=== PATIENT | female | born 1960 | race Caucasian/White ===

== ENCOUNTER 2024-09-17 13:26 | Emergency (ER) | payer OTHER, SELFPAY ==
[2024-09-17 13:28] VITALS: BP 138/75; PULSE 88; RESP 14; TEMP 36.3; O2SAT 96
--- NOTE | 2024-09-17 13:54 | ED.VIS.FEGU ---
HPI <VITALY Lepe - Last Filed: 09/17/24 15:12> HPI - Female History of Present Illness Chief Complaint: Vag Bleeding Narrative Narrative: Patient presenting due to abnormal vaginal bleeding that started earlier today. She coughed and felt blood coming out of her vagina, she then had to place a pad on and has had bleeding since. She denies any history of similar symptoms. She started HRT in February due to hot flashes from menopause. She follows with a engineer technical staff through the [facility]. She reports lower pelvic cramping that radiates to her back. She denies any fevers, chills, or urinary symptoms. PFSH <VITALY Lepe - Last Filed: 09/17/24 15:12> PFSH Allergy/AdvReac Type Severity Reaction Status Date / Time No Known Allergies Allergy Verified 09/17/24 13:32 Social History Smoking Status: Never smoker ROS <VITALY Lepe - Last Filed: 09/17/24 15:12> ROS ED Constitutional Constitutional ED: Denies chills or fever(s) Cardiovascular Cardiovascular: Denies chest pain Respiratory/Chest Respiratory/Chest: Denies dyspnea Gastrointestinal Gastrointestinal: Denies abdominal pain, nausea or vomiting Genitourinary Genitourinary ED: Reports other Details: Pelvic cramping, vaginal bleeding ; Denies dysuria, hematuria or urinary urgency Musculoskeletal Musculoskeletal: Reports other Details: Back pain Integumentary Denies rash Neurologic Neurologic: Denies weakness EXAM <VITALY Lepe - Last Filed: 09/17/24 15:12> Physical Exam Const Vital Signs: 09/17/24 13:28 09/17/24 15:00 Temperature 97.3 F L Temperature Source Temporal Pulse Rate 88 87 Respiratory Rate 14 18 Blood Pressure 138/75 H Blood Pressure Mean 96 Pulse Ox 96 100 Oxygen Delivery Method Room Air Positive well nourished, well developed and no apparent distress General Appearance ED: well developed HEENT Reports normocephalic and head/scalp atraumatic Mouth ED: Yes moist mucous membranes normal Eyes PERRL and EOMs intact bilaterally Neck full ROM and supple Chest Wall inspection of chest normal Resp normal respiratory effort and clear to auscultation bilaterally Cardio regular rate and regular rhythm GI soft to palpation, non-distended and no masses GI Narrative: Minimal pelvic tenderness to palpation Narrative: Pelvic exam performed with attending physician, moderate blood in the vaginal canal, cervix visualized with no hemorrhaging Back/Spine normal ROM and normal to inspection Extremity normal to inspection and full ROM Neuro oriented x3, CN's II-XII intact bilaterally, moves all extremities, no focal motor deficits and no sensory deficits noted Sensorium / Orientation: awake and alert Psych mental status grossly normal and thought process normal Skin no rashes or lesions noted and no wounds <Dr. Pipo Schumacher MD - Last Filed: 09/17/24 15:17> Physical Exam Const Vital Signs: 09/17/24 13:28 09/17/24 15:00 Temperature 97.3 F L Temperature Source Temporal Pulse Rate 88 87 Respiratory Rate 14 18 Blood Pressure 138/75 H Blood Pressure Mean 96 Pulse Ox 96 100 Oxygen Delivery Method Room Air MDM <VITALY Lepe - Last Filed: 09/17/24 15:12> [facility] MDM Narrative Medical decision making narrative: Patient presenting today due to abnormal vaginal bleeding that started today. She is postmenopausal currently on hormone replacement therapy due to hot flashes she was having. She follows with [facility] gynecology. Basic labs were obtained to assess for anemia, her CBC and BMP are largely unremarkable. She is otherwise hemodynamically stable. Pelvic exam performed by the attending physician. We do not have ultrasound here as it is Wednesday and a hol. I do not feel that she needs an emergent ultrasound. We did speak with on-call gynecology CHILD WELFARE CONSULTANT, they will give her a call tomorrow to set up an outpatient ultrasound and further workup. Strict return instructions were discussed with her, she is understanding of reasons to return. She will be discharged home in stable condition. Lab Data Attestation: I reviewed the patient's lab results. Labs: Laboratory Results - last 24 hr 09/17/24 14:03 WBC 6.2 RBC 4.31 Hgb 13.9 Hct 42.9 MCV 99.5 H MCH 32.3 H MCHC 32.4 RDW Std Deviation 47.5 H RDW Coeff of Lovely 12.9 Plt Count 160 MPV 11.4 Immature Gran % (Auto) 0.300 Neut % (Auto) 68.4 Lymph % (Auto) 19.2 [place] % (Auto) 8.5 Eos % (Auto) 2.6 Baso % (Auto) 1.0 Absolute Neuts (auto) 4.3 Absolute Lymphs (auto) 1.19 Nucleated RBC % 0 Sodium 138 Potassium 4.0 Chloride 106 Carbon Dioxide 20.5 L Anion Gap 12 BUN 17 Creatinine 0.80 Est GFR (MDRD) Non-Af 83 BUN/Creatinine Ratio 20.6 H Glucose 93 Calcium 8.9 <Dr. Pipo Schumacher MD - Last Filed: 09/17/24 15:17> [facility] Lab Data Labs: Laboratory Results - last 24 hr 09/17/24 14:03 WBC 6.2 RBC 4.31 Hgb 13.9 Hct 42.9 MCV 99.5 H MCH 32.3 H MCHC 32.4 RDW Std Deviation 47.5 H RDW Coeff of Lovely 12.9 Plt Count 160 MPV 11.4 Immature Gran % (Auto) 0.300 Neut % (Auto) 68.4 Lymph % (Auto) 19.2 [place] % (Auto) 8.5 Eos % (Auto) 2.6 Baso % (Auto) 1.0 Absolute Neuts (auto) 4.3 Absolute Lymphs (auto) 1.19 Nucleated RBC % 0 Sodium 138 Potassium 4.0 Chloride 106 Carbon Dioxide 20.5 L Anion Gap 12 BUN 17 Creatinine 0.80 Est GFR (MDRD) Non-Af 83 BUN/Creatinine Ratio 20.6 H Glucose 93 Calcium 8.9 Management Discussion w/another healthcare provider: Dramatic Director (Spoke with Anu barillas maid supervisor/CHILD WELFARE CONSULTANT for [facility] [employer]. She was given patient's name, date of and contact information. They will call her for follow-up for post menopausal bleeding.) Discharge Plan Triage Chief Complaint: Vag Bleeding ED Midlevel Provider: Genevieve Valente ED Provider: Pipo Schumacher Dx/Rx/DC Orders Clinical Impression: Post-menopause bleeding, Enlarged uterus, Elevated blood pressure reading with diagnosis of hypertension Instructions: ED Heavy Menstrual Bleeding Stand Alone Forms: ED Work / School Excuse Primary Care Provider: Wilton Skinner Referrals: Wilton Skinner DO [Primary Care Provider] - Activity Restrictions/Additional Instructions: The engineer technical staff from [facility] will call you tomorrow. They were given your preferred phone number. They will make appropriate arrangements for you to be seen first part of the upcoming week. If you have bleeding of 1 pad per hour for 4 straight hours, passing large clots or become lightheaded return to the emergency department Print Language: [place] Disposition Disposition: Home, Self Care Discharge Date/Time: 09/17/24 15:02
[2024-09-17 14:10] LABS: Absolute Lymphocyte Count 1.19 X10^3/uL (0.83-4.51); Absolute Neutrophil Count 4.3 X10^3/uL (2.0-7.7); Basophil# 0.06 X10^3/uL; Eosinophil# 0.16 X10^3/uL; Eosinophils% 2.6 % (0-5); Hematocrit 42.9 % (37-47); Hemoglobin 13.9 g/dL (12.0-15.0); Lymphocyte # 1.19 X10^3/ul (0.83-4.51); Lymphocyte % 19.2 % (19-41); Mean Corp Hgb Conc 32.4 g/dL (32-36); Mean Corpuscular Hgb 32.3 pg (27.0-32.0); Mean Corpuscular Volume 99.5 fL (81-99); Mean Platelet Vol. 11.4 fl (6.2-12.0); Monocyte# 0.53 X10^3/uL; Monocyte% 8.5 % (0-10); NRBC Flagged by Analyzer 0 % (0-5); Neutrophil # 4.25 X10^3/uL (2.7-7.7); Neutrophil % 68.4 % (47-70); Platelet Count 160 K/mm3 (150-450); RBC Distribution Width CV 12.9 % (11.6-14.6); RBC Distribution Width SD 47.5 fl (35.1-43.9); Red Blood Count 4.31 M/mm3 (4.2-5.4); White Blood Count 6.2 K/mm3 (4.4-11.0)
[2024-09-17 14:33] LABS: Anion Gap 12 (5-15); BUN 17 mg/dL (4-19); BUN/Creat Ratio 20.6 RATIO (10-20); Calcium,Total 8.9 mg/dL (7.6-11.0); Carbon Dioxide 20.5 mmol/L (21.0-32.0); Chloride 106 mmol/L (98-108); EST Glomerular Filtration Rate 83 (>60); Glucose 93 mg/dL (70-99); Sodium Level 138 mmol/L (133-145)
[2024-09-17 15:00] VITALS: PULSE 87; RESP 18; O2SAT 100
== END 2024-09-17 15:02 | disposition home or self-care (01) ==
PROVIDERS: Physician Assistant; Emergency Provider Emergency Medicine; PCP Student in an Organized Health Care Education/Training Program; Visit Provider Emergency Medicine
DX: N95.0 Postmenopausal bleeding (principal); N85.2 Hypertrophy of uterus; R03.0 Elevated blood-pressure reading, without diagnosis of hypertension; Z79.890 Hormone replacement therapy
CPT/HCPCS: 80048; 85025; 99283